=== PATIENT | female | born 1935 | race Caucasian/White ===

== ENCOUNTER 2017-02-05 14:14 | Emergency (ER) | payer OTHER ==
[~2017-02-05] VITALS: Ht 147.3 cm; Wt 34.0 kg
[2017-02-05] MEDS ORDERED: ZOLOFT25 MG PO (14:28)
[2017-02-05] MEDS ORDERED: PROTONIX40 M1 PO (14:28)
[2017-02-05] MEDS ORDERED: DEPAKOTE 250MG250 M1 PO (14:28)
[2017-02-05 16:02] VITALS: BP 84/74
== END 2017-02-05 17:28 | disposition home or self-care (01) ==
LOC: ER 14:14
DX: S62.305A Unspecified fracture of fourth metacarpal bone, left hand, initial encounter for closed fracture (principal); S62.307A Unspecified fracture of fifth metacarpal bone, left hand, initial encounter for closed fracture; S52.502A Unspecified fracture of the lower end of left radius, initial encounter for closed fracture; W19.XXXA Unspecified fall, initial encounter; Y93.89 Activity, other specified; Y92.89 Other specified places as the place of occurrence of the external cause; Y99.8 Other external cause status